=== PATIENT | male | born 1985 | race Caucasian/White ===

== ENCOUNTER 2016-05-29 09:49 | Emergency (ER) | payer OTHER ==
[~2016-05-29 09:49] MED LIST: BACTRIM DS TAB1 EACH PO; CIPRO500 MG PO; NORCO 10-325 T1 EACH PO; VALIUM10 MG PO
== END 2016-05-29 11:02 | disposition home or self-care (01) ==
LOC: ER 09:49
DX: R07.89 Other chest pain (principal); F41.9 Anxiety disorder, unspecified; Z87.442 Personal history of urinary calculi; F17.210 Nicotine dependence, cigarettes, uncomplicated